=== PATIENT | male | born 1985 | race Caucasian/White ===

== ENCOUNTER → 2016-08-21 | Outpatient (CLI) | payer BC ==
--- NOTE | 2016-08-26 16:31 | REP ---
Right hand series: Four views. Repeat dictation: History: Contusion after a fall. Findings: Four views of the right hand demonstrate overall normal mineralization. Bones, joints, and soft tissues are unremarkable. No fracture is seen. Impression: No fracture noted. Signed by Chance De La Paz MD 08/26/2016 04:33 P
== END ==
LOC: M ADAMS 16:36
PROVIDERS: ATTEND Physician Assistant Medical
DX: S60.221A Contusion of right hand, initial encounter (principal); W19.XXXA Unspecified fall, initial encounter; Y92.9 Unspecified place or not applicable; Y93.9 Activity, unspecified; Y99.9 Unspecified external cause status

== ENCOUNTER 2016-10-26 20:31 | Emergency (ER) | payer OTHER, BC ==
[~2016-10-26] VITALS: Ht 182.9 cm; Wt 136.3 kg
[2016-10-27] MEDS ORDERED: NAPR500T PO (00:27)
[2016-10-27] MEDS ORDERED: NAPROXEN 250 MG TAB PO ONE (00:30)
[2016-10-27 00:36] VITALS: BP 134/88
== END 2016-10-27 00:37 | disposition home or self-care (01) ==
LOC: M ED 20:31
DX: S46.112A Strain of muscle, fascia and tendon of long head of biceps, left arm, initial encounter (principal); X50.0XXA Overexertion from strenuous movement or load, initial encounter; Y92.89 Other specified places as the place of occurrence of the external cause; Y93.89 Activity, other specified; Y99.0 Civilian activity done for income or pay

== ENCOUNTER 2016-11-09 14:17 | Day surgery (SDC) | payer OTHER, BC ==
[~2016-11-09] VITALS: Ht 182.9 cm; Wt 149.7 kg
[~2016-11-09 14:17] MED LIST: NAPR500T PO
[2016-11-09] MEDS ORDERED: LR 1,000 ML IV ONE (14:30)
[2016-11-09] MEDS ORDERED: MIDAZOLAM INJ 2 MG/2 ML VIAL (J2250) As Ordered ONE (16:15)
[2016-11-09] MEDS ORDERED: fentaNYL 250 MCG/5 ML INJECTION (J3010) As Ordered ONE (16:16)
[2016-11-09] MEDS ORDERED: PROPOFOL 200 MG/20 ML VIAL As Ordered ONE (16:38)
[2016-11-09] MEDS ORDERED: SUCCINYLCHOLINE 100 MG/5 ML SYRINGE (J0330) As Ordered ONE (16:40)
[2016-11-09] MEDS ORDERED: LIDOCAINE 2% INJ 100 MG/5 ML SDV (FOR ANES.) As Ordered ONE (16:41)
[2016-11-09] MEDS ORDERED: VECURONIUM BROMIDE 10 MG VIAL As Ordered ONE (16:43)
[2016-11-09] MEDS ORDERED: BUPIVACAINE HCL 0.5% 10 ML VIAL As Ordered ONE ×2 (16:59→18:19)
[2016-11-09] MEDS ORDERED: ONDANSETRON 4MG/2ML VIAL (J2405) As Ordered ONE ×2 (17:44→18:18)
[2016-11-09] MEDS ORDERED: HYDROmorphone HCL 2 MG/ML 1ML VIAL (J1170) As Ordered ONE (18:18)
[2016-11-09] MEDS ORDERED: NEOSTIGMINE 1MG/ML 5 ML SYRINGE (J2710) As Ordered ONE (18:32)
[2016-11-09] MEDS ORDERED: GLYCOPYRROLATE INJ 0.2 MG/ML 2 ML VIAL As Ordered ONE (18:32)
[2016-11-09] MEDS ORDERED: KETOROLAC 60 MG/2 ML VIAL (J1885) As Ordered ONE (19:20)
[2016-11-09] MEDS: PERCOCET 5MG/325MG TAB PO PRN ×2 (19:42→21:54)
[2016-11-09] MEDS ORDERED: LR 1,000 ML IV SCH ×2 (19:45→20:00)
[2016-11-09] MEDS ORDERED: MEPERIDINE INJ 25 MG/ML VIAL (J2175) IV PRN (19:45)
[2016-11-09] MEDS ORDERED: KETOROLAC 30 MG/ML VIAL (J1885) IV PRN (19:45)
[2016-11-09] MEDS: fentaNYL 100 MCG/2 ML INJECTION (J3010) IV PRN ×2 (19:47→20:03)
[2016-11-09] MEDS ORDERED: PERCOCET 5MG/325MG TAB As Ordered ONE (21:51)
[2016-11-09 22:20] VITALS: BP 120/73
--- NOTE | 2016-11-12 09:41 | RO ---
DATE OF PROCEDURE: 11/09/2016 PREPROCEDURE DIAGNOSIS: Left full thickness distal biceps tendon rupture. POSTPROCEDURE DIAGNOSIS: Left full thickness distal biceps tendon rupture. PROCEDURE: Left open distal biceps tendon repair SURGEON: Dr. Kartik Cruz. ADMISSIONS MANAGER RN: Petr Ruiz, physician assistant casino shift manager. ANESTHESIA: General. IV FLUIDS: Lactated ringers. ESTIMATED BLOOD LOSS: Less than 50 mL. IMPLANTS: Arthrex distal biceps button with 8 mm interference screw. CLOSURE: Nylon. INDICATIONS: Hari is a 31-year-old gentleman who suffered a injury at work on 10/26/2016 when he as lifting a heavy object and felt a pop in his left elbow. Physical exam was concerning for distal biceps rupture and an MRI was obtained which confirmed a full thickness tear of the biceps with retraction. He had weakness with supination and elbow flexion. Given his young age and activity level, we discussed operative and nonoperative management and I recommended surgery. The risks and benefits of left open distal biceps tendon repair were discussed with him and he understood the risks included but were not limited to bleeding, infection, damage to an adjacent neurovascular structure, deep venous thrombosis (DVT)/pulmonary embolus (PE), fracture, stiffness, heterotopic ossification or synostosis, weakness, failure to alleviate pain, failure to return to preinjury activity level and need for additional surgery. Written informed consent obtained. PROCEDURE: The patient was identified in the preoperative holding area and the left arm marked by myself. He was brought to the operating room and placed supine on a well padded OR table. General anesthesia induced without complication. A pre-scrub on the left arm was performed with Ultradex. The left arm was positioned on a hand table. The left arm was then prepped and draped in the normal sterile fashion. I should mention he had Venodyne boots on bilateral lower extremities for deep venous thrombosis prophylaxis. He received 2 grams of IV cefazolin for antibiotic prophylaxis within 1 hour of incision. Prior to incision, myself and the entire OR team confirmed the patient's name, medical record number, date of and the correct side, site and procedure. A 4 cm transverse incision was made three fingerbreadths distal to the elbow flexion crease. This was with a #15 blade. Subcutaneous dissection with electrocautery and Metzenbaum scissors. Superficial fascia was carefully divided and cautery used on some small bleeders. Blunt dissection was then used to gain access to the radial tuberosity. Through the incision, I bluntly dissected in a subcutaneous fashion up toward the biceps tendon stump but was unable to free that up. I then decided to make a separate small transverse incision three fingerbreadths proximal to the wrist flexion crease to identify and free up the tendon. Of note, the tendon had retracted about 4 cm on MRI which was already a week ago. The separate incision was made with a #15 blade and the biceps tendon was easily identified. Blunt dissection was able to free up the tendon. The tendon was then passed from the proximal to distal incision and Metzenbaum scissors used to narrow the tendon stump. I used the FiberLoop from the Arthrex distal biceps kit to place a running locking whip stitch through the distal 3 cm of the tendon. The FiberWire suture tails were then passed through the distal biceps button. The forearm was held in maximal supination and a small Leyda retractor placed on the ulnar aspect of the radius at the tuberosity. A Balfour elevator was used to clear soft tissue off the radial tuberosity. The spade tip guidewire from the Arthrex kit was used to create a unicortical drill hole and position checked on the miniature C-arm. The guide pin was repositioned slightly more proximal so that it was just distal to the mid point and central to ulnar. The guide pin was then drilled in a bicortical fashion. Guide pin was angled in the radial direction to help avoid injury to the pin. The 8 mm cannulated reamer was used to create a unicortical socket in the tuberosity. I then extensively irrigated the incision to remove bony debris. The button was then passed on the skin care specialist through the drill hole and sutures were toggled and the button was flipped. The sutures were toggled again which docks the tendon into the socket nicely. Position of the button was checked on AP and lateral views using mini C-arm to confirm that the button had flipped and appropriate position of drill holes. With the elbow in 20 degrees of flexion, a free needle was used to pass one limb of the suture through the tendon and locked the construct, knots were tied by hand. One limb of suture was then passed through the and an 8 mm interference screw was placed. This was placed in a way to position the tendon on the ulnar aspect of the drill hole. There was excellent fixation. Suture tails were then tied and then cut. Both incisions were irrigated with normal saline and closed in a layered fashion with #2-0 Vicryl for deep fascia and superficial fascia and a running #3-0 Nylon. I injected 10 mL of 0.5% Marcaine without epinephrine. Bulky sterile bandage applied. Patient was placed into low padded posterior splint with a sling. He was awoken from general anesthesia without complication. All counts correct times two. DISPOSITION: Patient is stable in the postanesthesia care unit. He was noted to be EPL, FPL, IO and EDC. Followup in 8-9 days for suture removal and placement into a hinged elbow brace.
== END 2016-11-09 22:30 | disposition home or self-care (01) ==
LOC: M SDC 14:17
PROVIDERS: ATTEND Orthopaedic Surgery
DX: S46.992A Other injury of unspecified muscle, fascia and tendon at shoulder and upper arm level, left arm, initial encounter (principal); J45.909 Unspecified asthma, uncomplicated; F17.210 Nicotine dependence, cigarettes, uncomplicated; E66.01 Morbid (severe) obesity due to excess calories; X50.0XXA Overexertion from strenuous movement or load, initial encounter; Y99.0 Civilian activity done for income or pay; Y92.59 Other trade areas as the place of occurrence of the external cause
CPT/HCPCS: 23430; C1713; J0330; J0690; J1170; J1885; J2250; J2405; J2710; J3010

== ENCOUNTER → 2019-07-28 | Outpatient (REF) | payer OTHER ==
[~2019-07-28] MED LIST changes: +NAPR-837 PO; -NAPR500T PO
[2019-07-28 13:45] LABS: HEMATOCRIT 46.2 % (42.0-52.0); HEMOGLOBIN 15.8 g/dl (13.5-17.5); MEAN CORPUSCULAR HEMOGLOBIN 30.7 pg (27.0-33.0); MEAN CORPUSCULAR HGB CONC 34.2 g/dl (32.0-36.5); MEAN CORPUSCULAR VOLUME 89.9 fl (80.0-96.0); PLATELET COUNT, AUTOMATED 220 10^3/uL (150-450); RED BLOOD COUNT 5.14 10^6/uL (4.30-6.10); WHITE BLOOD COUNT 7.8 10^3/uL (4.0-10.0)
[2019-07-28 13:52] LABS: APPEARANCE, URINE CLEAR (CLEAR); BACTERIA, URINE AUTO NEGATIVE (NEGATIVE); BILIRUBIN, URINE AUTO NEGATIVE (NEGATIVE); BLOOD, URINE BLOOD NEGATIVE (NEGATIVE); COLOR, URINE YELLOW (YELLOW); GLUCOSE, URINE (UA) AUTO 3+ mg/dL (NEGATIVE); KETONE, URINE AUTO TRACE mg/dL (NEGATIVE); LEUKOCYTE ESTERASE, URINE AUTO NEGATIVE (NEGATIVE); NITRITE, URINE AUTO NEGATIVE (NEGATIVE); PROTEIN, URINE AUTO NEGATIVE (NEGATIVE); RBC, URINE AUTO 0 /HPF (0-3); SPECIFIC GRAVITY URINE AUTO 1.032 (1.002-1.035); SQUAMOUS EPITHELIAL CELL UR AU 0 /HPF (0-6); UROBILINOGEN, URINE AUTO 0.2 mg/dL (0.0-2.0); WBC, URINE AUTO 0 /HPF (0-3)
[2019-07-28 14:34] LABS: ALBUMIN 4.1 GM/DL (3.2-5.2); ALT/SGPT 49 U/L (12-78); BILIRUBIN,TOTAL 0.4 MG/DL (0.2-1.0); BLOOD UREA NITROGEN 14 MG/DL (7-18); CALCIUM LEVEL 9.1 MG/DL (8.5-10.1); CARBON DIOXIDE LEVEL 25 MEQ/L (21-32); CHLORIDE LEVEL 102 MEQ/L (98-107); CHOLESTEROL LEVEL 254 MG/DL (<200); CREATININE FOR GFR 0.86 MG/DL (0.70-1.30); GLOMERULAR FILTRATION RATE > 60.0 (>60); GLUCOSE, FASTING 361 MG/DL (70-100); HDL CHOLESTEROL 40 MG/DL (>40); LDL CHOLESTEROL 167 MG/DL (<100); MAGNESIUM LEVEL 1.9 MG/DL (1.8-2.4); NON-HDL-C 214 MG/DL; POTASSIUM SERUM 4.3 MEQ/L (3.5-5.1); SODIUM LEVEL 135 MEQ/L (136-145); TOTAL PROTEIN 7.3 GM/DL (6.4-8.2); TRIGLYCERIDES LEVEL 237 MG/DL (<150)
[2019-07-28 15:54] LABS: HEMOGLOBIN A1c 11.9 %
== END ==
LOC: M SFHCADAM 10:52
PROVIDERS: ATTEND Physician Assistant Medical
DX: E66.01 Morbid (severe) obesity due to excess calories (principal); R35.8 Other polyuria; L98.9 Disorder of the skin and subcutaneous tissue, unspecified; R63.1 Polydipsia

== ENCOUNTER 2022-10-31 10:31 | Inpatient (IN) | payer OTHER ==
[~2022-10-31] VITALS: Ht 182.9 cm; Wt 126.9 kg
[2022-10-31] VITALS (7 sets, daily range): BP systolic 127–141; BP diastolic 76–83; TEMP 97.4–98.1; O2SAT 94–97
[2022-10-31] MEDS ORDERED: diphenhydrAMINE 50MG/ML VIAL IV ONE (11:00)
[2022-10-31] MEDS ORDERED: FAMOTIDINE 20MG/2ML VIAL IVP ONE (11:00)
[2022-10-31] MEDS ORDERED: EPINEPHrine INJ 1 MG/ML 1ML AMP IM STA (11:00)
[2022-10-31] MEDS ORDERED: C1 ESTERASE INHIBITOR IV ONE ×2 (11:00→11:06)
[2022-10-31 11:46] LABS: COMPLEMENT C4 31.6 MG/DL (12-36)
[2022-10-31 11:50] LABS: ALBUMIN 3.5 G/DL (3.2-5.2); ALKALINE PHOSPHATASE 92 U/L (46-116); ALT/SGPT 29 U/L (7.0-40); AST/SGOT 8 U/L (<34); BILIRUBIN,DIRECT < 0.1 MG/DL (<0.4); BILIRUBIN,TOTAL 0.3 MG/DL (0.3-1.2); BLOOD UREA NITROGEN 16 MG/DL (9-23); CALCIUM LEVEL 8.8 MG/DL (8.5-10.1); CARBON DIOXIDE LEVEL 24 MMOL/L (20-31); CHLORIDE LEVEL 101 MMOL/L (98-107); GLOMERULAR FILTRATION RATE > 60.0 (>60); GLUCOSE, FASTING 515 MG/DL (60-100); POTASSIUM SERUM 4.4 MMOL/L (3.5-5.1); SODIUM LEVEL 134 MMOL/L (136-145); TOTAL PROTEIN 6.4 G/DL (5.7-8.2)
[2022-10-31] MEDS ORDERED: HumuLIN R (REGULAR) INSULIN (NovoLIN R) **100U/ML** PER UNIT IV ONE (11:55)
[2022-10-31] MEDS ORDERED: NS 1,000 ML IV ONE (11:55)
[2022-10-31] MEDS ORDERED: IBUP-1720 PO (13:04)
[2022-10-31] MEDS ORDERED: MED REC IN PROGRESS XX SCH (13:05)
[2022-10-31] MEDS ORDERED: INSULIN LISPRO (NovoLOG) PER UNIT SC STA (13:07)
[2022-10-31] MEDS ORDERED: ACETAMINOPHEN TAB 650MG DOSE (2X325MG) PO PRN (13:10)
[2022-10-31] MEDS ORDERED: DEXTROSE 50% 50ML SYRINGE IV PRN (13:10)
[2022-10-31] MEDS ORDERED: MOM 30ML SUSPENSION UDC PO PRN (13:10)
[2022-10-31] MEDS ORDERED: GLUCOSE 4GM CHEW TABLET PO PRN (13:10)
[2022-10-31] MEDS ORDERED: GLUCAGON INJ 1MG VIAL SC PRN (13:10)
[2022-10-31] MEDS ORDERED: HOME MED LIST COMPLETE! XX SCH (13:15)
[2022-10-31] MEDS ORDERED: EPINEPHrine INJ 1 MG/ML 1ML AMP IM PRN (13:25)
[2022-10-31 14:00] LABS: CHOLESTEROL RISK RATIO 5.99 (<5); HDL CHOLESTEROL 37.2 MG/DL (>40); LDL CHOLESTEROL 144.8 MG/DL (<100); NON-HDL-C 185.8 MG/DL
[2022-10-31 14:09] LABS: HEMOGLOBIN A1c 11.5 % (4.0-6.0)
[2022-10-31 14:52] LABS: HEMATOCRIT 47.1 % (42.0-52.0); HEMOGLOBIN 15.8 g/dl (13.5-17.5); MEAN CORPUSCULAR HGB CONC 33.5 g/dl (32.0-36.5); MEAN CORPUSCULAR VOLUME 89.4 fl (80.0-96.0); PLATELET COUNT, AUTOMATED 230 10^3/uL (150-450); RED BLOOD COUNT 5.27 10^6/uL (4.30-6.10); WHITE BLOOD COUNT 14.7 10^3/uL (4.0-10.0)
[2022-10-31] MEDS: INSULIN LISPRO (NovoLOG) PER UNIT SC SCH ×3 (18:06→23:49)
[2022-10-31] MEDS: DOCUSATE SODIUM 100MG CAPSULE PO SCH (20:44)
[2022-10-31] MEDS ORDERED: LEVEMIR (INSULIN DETEMIR) 1 UNITS/0.01ML SC SCH (21:00)
[2022-11-01] VITALS (9 sets, daily range): BP systolic 73–126; BP diastolic 73–79; TEMP 96.9–97.1; O2SAT 95–99
[2022-11-01] MEDS: INSULIN LISPRO (NovoLOG) PER UNIT SC SCH (06:07)
[2022-11-01 06:40] LABS: BLOOD UREA NITROGEN 12 MG/DL (9-23); CARBON DIOXIDE LEVEL 25 MMOL/L (20-31); CHLORIDE LEVEL 105 MMOL/L (98-107); CREATININE FOR GFR 0.61 MG/DL (0.70-1.30); GLOMERULAR FILTRATION RATE > 60.0 (>60); GLUCOSE, FASTING 231 MG/DL (60-100); POTASSIUM SERUM 4.2 MMOL/L (3.5-5.1); SODIUM LEVEL 140 MMOL/L (136-145)
[2022-11-01 06:47] LABS: HEMATOCRIT 44.7 % (42.0-52.0); HEMOGLOBIN 15.3 g/dl (13.5-17.5); MEAN CORPUSCULAR HEMOGLOBIN 30.2 pg (27.0-33.0); MEAN CORPUSCULAR HGB CONC 34.2 g/dl (32.0-36.5); MEAN CORPUSCULAR VOLUME 88.3 fl (80.0-96.0); PLATELET COUNT, AUTOMATED 253 10^3/uL (150-450); RED BLOOD COUNT 5.06 10^6/uL (4.30-6.10)
[2022-11-01] MEDS ORDERED: metFORMIN (GLUCOPHAGE) 500MG TAB PO SCH (08:00)
[2022-11-01] MEDS ORDERED: ALCOPAD25 TOP (08:07)
[2022-11-01] MEDS ORDERED: BLOOKIT21 XX (08:07)
[2022-11-01] MEDS ORDERED: LANC30MI XX (08:07)
[2022-11-01] MEDS ORDERED: INSU100I48 SQ (08:07)
[2022-11-01] MEDS ORDERED: GLUC1TES2 XX (08:07)
[2022-11-01] MEDS ORDERED: PEN1MIS21 SC (08:07)
[2022-11-01] MEDS ORDERED: METF500T13 PO (08:08)
[2022-11-01] MEDS ORDERED: EPIP0.3I2 IM (08:09)
[2022-11-01] MEDS ORDERED: ATORVASTATIN 20 MG TAB PO SCH (09:00)
[2022-11-01] MEDS ORDERED: ENOXAPARIN 40MG/0.4ML SYRINGE (J1650 PER 10MG) SC SCH (09:00)
[2022-11-01] MEDS ORDERED: ATOR1TAB21 PO (09:26)
[2022-11-01] MEDS ORDERED: DEXT4TAB83 PO (09:26)
[2022-11-01] MEDS ORDERED: ATOR40TA75 PO (09:29)
[2022-11-01] MEDS: DOCUSATE SODIUM 100MG CAPSULE PO SCH (09:59)
== END 2022-11-01 10:56 | disposition home or self-care (01) | DRG 811 ==
LOC: M ED 10:31 → M ED INP 13:07 → M PCU 17:46
PROVIDERS: ADMIT Student in an Organized Health Care Education/Training Program; ATTEND Student in an Organized Health Care Education/Training Program
DX: T78.3XXA Angioneurotic edema, initial encounter (principal); E11.9 Type 2 diabetes mellitus without complications; E66.9 Obesity, unspecified; F17.210 Nicotine dependence, cigarettes, uncomplicated; Z79.84 Long term (current) use of oral hypoglycemic drugs; Z79.4 Long term (current) use of insulin; Z79.899 Other long term (current) drug therapy